=== PATIENT | female | born 1980 | race Caucasian/White ===

== ENCOUNTER → 2020-02-06 12:31 | Outpatient (CLI) | payer OTHER, SELFPAY ==
--- NOTE | 2020-02-06 | DI.US.S_ITS ---
PROCEDURE: US EXTREMITY NONVASC LOWER RT INDICATIONS: RT LOWER EXT LUMP TECHNIQUE: Real-time scanning was performed of the right lower inner thigh region in the area of current palpable clinical concern persisting over 6 days, with image documentation. COMPARISON: None. FINDINGS: In the area of current clinical concern there is a complex cystic multi septated structure containing low level internal echoes, with overall dimensions of 2.5 x 2.6 x 8.5 cm. The patient states no trauma or foreign body is considered a potential cause of this finding. Internal blood flow seen at the inferior aspect of the structure, which may be inflammatory in origin. IMPRESSION: Complex multi septated structure corresponds to the area of current clinical concern, with the liquid within the cystic components containing low level internal echoes. In areas where the septations are most pronounced, inferior aspect of the structure that measures up to 8.5 cm craniocaudad there is identifiable increased blood flow. Infection or neoplasm would be a significant concern given this appearance. Please correlate for present prior trauma given that a liquefying hematoma also could explain this appearance. Dictated by: Atilio Villatoro M.D. on 02/06/2020 at 13:36 Approved by: Atilio Villatoro M.D. on 02/06/2020 at 13:40
== END ==
PROVIDERS: PCP Nurse Practitioner Family; Referring Provider Nurse Practitioner Family; Visit Provider Nurse Practitioner Family
DX: R22.41 Localized swelling, mass and lump, right lower limb (principal)
CPT/HCPCS: 76882